=== PATIENT | female | born 1980 | race Two or more races ===

== ENCOUNTER 2017-10-22 09:18 | Outpatient (CLI) | payer OTHER | END 2017-10-22 12:22 | disposition home or self-care (01) | LOC: SONOGRAMA 09:18 | DX: E04.2 Nontoxic multinodular goiter (principal) ==

== ENCOUNTER → 2018-11-25 | Outpatient (CLI) | payer OTHER | END | disposition home or self-care (01) | LOC: SONOGRAMA 09:27 | DX: E04.2 Nontoxic multinodular goiter (principal) ==